=== PATIENT | male | born 1945 | race Caucasian/White ===

== ENCOUNTER 2016-09-17 02:30 | Inpatient (IN) | payer MEDICARE, BC ==
[2016-09-17] VITALS (12 sets, daily range): BP systolic 113–146; BP diastolic 53–68; PULSE 60–94; RESP 16–20; TEMP 96.9–98.9; O2SAT 92–98
[~2016-09-17] VITALS: Ht 172.7 cm; Wt 108.0 kg
[2016-09-17] MEDS ORDERED: GABA300C5 PO (03:09)
[2016-09-17] MEDS ORDERED: LISI10TA3 PO (03:09)
[2016-09-17] MEDS ORDERED: PARO20TA2 PO (03:09)
[2016-09-17] MEDS ORDERED: OMEP40CA2 PO (03:09)
[2016-09-17] MEDS ORDERED: LIPI40TA PO (03:09)
[2016-09-17] MEDS ORDERED: BYST5TAB2 PO (03:09)
[2016-09-17] MEDS ORDERED: ASPI325T PO (03:09)
[2016-09-17] MEDS ORDERED: TURM500C PO (03:09)
[2016-09-17] MEDS ORDERED: MULT1TAB84 PO (03:09)
[2016-09-17] MEDS ORDERED: [UNRECOGNIZED DRUG - CODE] PO (03:09)
[2016-09-17 04:22] LABS: BLOOD, URINE NEG (NEG); GLUCOSE,URINE NEG (NEG); KETONE, URINE 15 mg/dL (NEG); NITRITE,URINE NEG (NEG); PH, URINE 5.5 (5.0-8.5)
[2016-09-17 04:25] LABS: BASOPHIL % 0.6 % (0.0-2.0); EOSINOPHIL # 0.2 TH/MM3 (0-0.4); EOSINOPHIL % 2.8 % (0.0-4.0); HEMO FLAGS DIFF FINAL; LYMPH % 17.1 % (9.0-44.0); LYMPHOCYTE # 1.4 TH/MM3 (1.0-4.8); MEAN CELL VOLUME 91.6 FL (80.0-100.0); MEAN CORPUSCULAR HEMOGLOBIN 31.1 PG (27.0-34.0); MONO % 7.7 % (0.0-8.0); NEUT % 71.8 % (16.0-70.0); PLATELET COUNT 157 TH/MM3 (150-450); RED BLOOD COUNT 3.82 MIL/MM3 (4.50-5.90); WHITE BLOOD COUNT 8.2 TH/MM3 (4.0-11.0)
[2016-09-17 04:30] LABS: URINE COLOR YELLOW (YELLW/STRAW)
[2016-09-17] MEDS ORDERED: SODIUM CHLORIDE 0.9% FLUSH 5 ML FLUSH IVF PRN (04:30)
[2016-09-17 04:31] LABS: CHLORIDE 105 MEQ/L (98-107); COMMENT (UR) CULT NOT INDICATED; CULTURE IF INDICATED CULT NOT INDICATED; RBC, URINE 0-2 /hpf (0-3); SODIUM (NA) 140 MEQ/L (136-145); SQUAMOUS EPITHELIAL CELL URINE 0-5 /hpf (0-5); WBC, URINE 0-2 /hpf (0-5)
--- NOTE | 2016-09-17 04:33 | PD ---
HPI Chief Complaint: Abdominal Pain Time Seen by Provider: 04:30 Travel History International Travel<30 days: No Contact w/Intl Traveler<30days: No Traveled to known affect area: No History of Present Illness HPI The patient is a 71-year-old male that complains of left upper quadrant pain for 1 day. He denies any nausea or vomiting or fever. He does have a history of diverticulitis and has had a partial large bowel resection, apparently descending colon, for diverticulitis in the past. PFSH Past Medical History Depression: Yes Cardiovascular Problems: Yes High Cholesterol: Yes Diverticulitis: Yes (with reverse colostomy) Medical other: Yes (neuropathy due to back pain) Musculoskeletal: Yes (back:ddd, bulging discs, stenosis) Tetanus Vaccination: > 5 Years Influenza Vaccination: No Past Surgical History Cholecystectomy: Yes Coronary Artery Bypass Graft: Yes (2007, ) Tonsillectomy: Yes Social History Alcohol Use: Yes (daily 1 bottle of wine and beer) Tobacco Use: No Allergies-Medications (Allergen,Severity, Reaction): Coded Allergies: Codeine (Verified Allergy, Intermediate, Nausea/Vomiting, 09/17/16) Reported Meds & Prescriptions Reported Meds & Active Scripts Active Reported Turmeric (Turmeric (Curcuma Longa)) 500 Mg Cap 500 Mg PO DAILY Multivitamin Adults (Multiple Vitamins W/ Minerals) 1 Tab 1 Tab PO DAILY B-12 (Cyanocobalamin) 500 Mcg Tab 500 Mcg PO DAILY Aspirin 325 Mg Tab 325 Mg PO DAILY Bystolic (Nebivolol) 5 Mg Tab 5 Mg PO DAILY Paroxetine (Paroxetine HCl) 20 Mg Tab 20 Mg PO DAILY Omeprazole 40 Mg Cap 40 Mg PO DAILY Lipitor (Atorvastatin Calcium) 40 Mg Tab 40 Mg PO HS Lisinopril 10 Mg Tab 10 Mg PO DAILY Gabapentin 300 Mg Cap 300 Mg PO TID Review of Systems Except as stated in HPI: all other systems reviewed are Neg Physical Exam Narrative GENERAL: The patient is alert, oriented 3 in moderate apparent distress with his left upper quadrant abdominal pain. His vital signs are normal. SKIN: Warm and dry. HEAD: Atraumatic. Normocephalic. EYES: Pupils equal and round. No scleral icterus. No injection or drainage. ENT: No nasal bleeding or discharge. Mucous membranes pink and moist. NECK: Trachea midline. No JVD. CARDIOVASCULAR: Regular rate and rhythm. No murmur appreciated. RESPIRATORY: No accessory muscle use. Clear to auscultation. Breath sounds equal bilaterally. GASTROINTESTINAL: Abdomen soft, with tenderness to direct palpation of the left upper quadrant, nondistended. Hepatic and splenic margins not palpable. No guarding or rebound is present. The patient has incisional/abdominal hernias and the anterior abdomen because of his multiple surgeries. All these are easily reducible. MUSCULOSKELETAL: No obvious deformities. No clubbing. No cyanosis. No edema. NEUROLOGICAL: Awake and alert. No obvious cranial nerve deficits. Motor grossly within normal limits. Normal speech. PSYCHIATRIC: Appropriate mood and affect; insight and judgment normal. Data Data Last Documented VS Vital Signs Date Time Temp Pulse Resp B/P Pulse Ox O2 Delivery O2 Flow Rate FiO2 09/17/16 05:10 67 18 130/53 97 Room Air 09/17/16 02:35 98.9 Orders Complete Blood Count With Diff (09/17/16 04:01) Comprehensive Metabolic Panel (09/17/16 04:01) Urinalysis - C+S If Indicated (09/17/16 04:01) Iv Access Insert/Monitor (09/17/16 04:01) Lipase (09/17/16 04:01) Ct Abd/Pel W Iv Contrast(Rout) (09/17/16 04:30) Ecg Monitoring (09/17/16 04:30) Oximetry (09/17/16 04:30) Sodium Chloride 0.9% Flush (Ns Flush) (09/17/16 04:30) Iohexol 350 Inj (Omnipaque 350 Inj) (09/17/16 04:51) Admit Order (Ed Use Only) (09/17/16 05:28) Labs Laboratory Tests Test 09/17/16 04:00 White Blood Count 8.2 TH/MM3 Red Blood Count 3.82 MIL/MM3 Hemoglobin 11.9 GM/DL Hematocrit 35.0 % Mean Corpuscular Volume 91.6 FL Mean Corpuscular Hemoglobin 31.1 PG Mean Corpuscular Hemoglobin 34.0 % Concent Red Cell Distribution Width 13.0 % Platelet Count 157 TH/MM3 Mean Platelet Volume 7.8 FL Neutrophils (%) (Auto) 71.8 % Lymphocytes (%) (Auto) 17.1 % Monocytes (%) (Auto) 7.7 % Eosinophils (%) (Auto) 2.8 % Basophils (%) (Auto) 0.6 % Neutrophils # (Auto) 6.0 TH/MM3 Lymphocytes # (Auto) 1.4 TH/MM3 Monocytes # (Auto) 0.6 TH/MM3 Eosinophils # (Auto) 0.2 TH/MM3 Basophils # (Auto) 0.0 TH/MM3 CBC Comment DIFF FINAL Differential Comment Urine Color YELLOW Urine Turbidity CLEAR Urine pH 5.5 Urine Specific [place] 1.019 Urine Protein NEG mg/dL Urine Glucose (UA) NEG mg/dL Urine Ketones 15 mg/dL Urine Occult Blood NEG Urine Nitrite NEG Urine Bilirubin NEG Urine Leukocyte Esterase NEG Urine RBC 0-2 /hpf Urine WBC 0-2 /hpf Urine Squamous Epithelial 0-5 /hpf Cells Urine Bacteria NONE /hpf Microscopic Urinalysis Comment CULT NOT INDICATED Sodium Level 140 MEQ/L Potassium Level 4.0 MEQ/L Chloride Level 105 MEQ/L Carbon Dioxide Level 24.1 MEQ/L Anion Gap 11 MEQ/L Blood Urea Nitrogen 26 MG/DL Creatinine 0.91 MG/DL Estimat Glomerular Filtration 82 ML/MIN Rate Random Glucose 118 MG/DL Calcium Level 8.1 MG/DL Total Bilirubin 0.6 MG/DL Aspartate Amino Transf 16 U/L (AST/SGOT) Alanine Aminotransferase 30 U/L (ALT/SGPT) Alkaline Phosphatase 59 U/L Total Protein 6.6 GM/DL Albumin 3.1 GM/DL Lipase 177 U/L MDM Medical Decision Making Medical Screen Exam Complete: Yes Emergency Medical Condition: Yes Medical Record Reviewed: Yes Interpretation(s) The urine shows 15 ketones but is otherwise normal and culture is not indicated. The CBC is normal except for hemoglobin 11.9 and hematocrit of 35.0 and 72% neutrophils. The complete metabolic profile shows a BUN of 26, GFR of 82, glucose of 118 and calcium 8.1 and albumen 3.1 but is otherwise normal. The lipase is normal. The CT abdomen/pelvis shows severe diverticulitis of the proximal sigmoid colon and a perforated diverticulum with a trace amount of adjacent free air. There is no extensive free air and there is no edema/ nonorganized fluid in the pericolic gutter. It also shows the low midline laparotomy and hemicolectomy and there is a large ventral hernia containing large and small bowel loops but these do not appear to be contributory to the patient's pain. Differential Diagnosis Diverticulitis, pancreatitis, diverticulitis with perforation/abscess, electrolyte imbalance, renal insufficiency, anemia, colitis Narrative Course The patient has severe diverticulitis with a perforated diverticulum. No abscess formation is noted. The patient is comfortable, has a normal white count, is afebrile and looks fairly good and does not appear to need immediate surgery at this time. Plan: The patient be admitted for nothing by mouth and IV antibiotic therapy. Physician Communication Physician Communication I discussed the patient with Dr. Watson and Dr. Rhiannon Hernández. The patient will be admitted to Dr. Watson and Dr. Rhiannon Hernández will be consulting. Dr. Rhiannon Hernández requested that the patient be transferred to [facility]. Diagnosis Primary Impression: Diverticulitis of colon with perforation Admitting Information Admitting Physician Requests: Admit Papa Durán MD Sep 17, 2016 04:33
[2016-09-17 04:35] LABS: ANION GAP 11 MEQ/L (5-15); BICARBONATE 24.1 MEQ/L (21.0-32.0); BLOOD UREA NITROGEN 26 MG/DL (7-18)
[2016-09-17 04:38] LABS: ALT (GPT) 30 U/L (12-78); AST (GOT) 16 U/L (15-37); GLOMERULAR FILTRATION RATE 82 ML/MIN (>89)
[2016-09-17 04:39] LABS: TOTAL BILIRUBIN ADULT 0.6 MG/DL (0.2-1.0)
[2016-09-17 04:41] LABS: ALKALINE PHOSPHATASE 59 U/L (45-117)
[2016-09-17] MEDS ORDERED: IOHEXOL 350 MG/ML 10 ML VIAL (for RAD DIAG) IV ONE (04:51)
--- NOTE | 2016-09-17 05:23 | RADHPO ---
EXAM DATE/TIME: 09/17/2016 04:45 [facility] COMPARISON: No previous studies available for comparison. INDICATIONS : Lower left abdominal pain today. IV CONTRAST: 100 cc Omnipaque 350 (iohexol) IV ORAL CONTRAST: No oral contrast ingested. RADIATION DOSE: 21.91 CTDIvol (mGy) MEDICAL HISTORY : Diverticulitis. SURGICAL HISTORY : Cholecystectomy. ENCOUNTER: Initial ACUITY: 1 day PAIN SCALE: 5/10 LOCATION: Left lower quadrant abdomen TECHNIQUE: Volumetric scanning of the abdomen and pelvis was performed. Using automated exposure control and ad justment of the mA and/or kV according to patient size, radiation dose was kept as low as reasonably achievable to obtain optimal diagnostic quality images. FINDINGS: There is diverticulosis of the left side of the colon. Focal inflammatory changes are seen of the pro ximal sigmoid colon, series 2 image 50. A small amount of extraluminal air is seen adjacent to a dive rticulum and there is edema/non-organized fluid in the left pericolic gutter. No large amount of free air. No organized fluid. There is no bowel obstruction. Appendix is normal. Liver is mild fatty infiltrated. Spleen, pancreas, adrenal glands and kidneys are within normal limit s. The patient has a large ventral hernia at and below the umbilicus containing loops of small and large bowel. No incarceration or obstruction demonstrated. Above the umbilicus are midline and left grady lateral fat containing ventral hernias. 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 CONCLUSION: 1. Severe diverticulitis of the proximal sigmoid colon and with a perforated diverticulum with a trac e amount of adjacent free air. No extensive free air. There is edema/nonorganized fluid in the nandini lic gutter without abscess. 2. Previous low midline laparotomy with hysterectomy. There is a large ventral hernia containing smal l and large bowel loops but does not appear to be acutely contributory. 3. Fatty liver. 4. 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 Monico Diaz MD on September 17, 2016 at 5:14 Board Certified Radiologist. This report was verified electronically.
[2016-09-17] MEDS ORDERED: metroNIDAZOLE 500 MG INJ 100 ML IV ONE (05:45)
[2016-09-17] MEDS ORDERED: NALOXONE HCL 0.4 MG/ML AMP IV PRN (05:45)
[2016-09-17] MEDS ORDERED: LEVOFLOXACIN 500 MG PREMIX INJ 100 ML IV ONE (05:45)
[2016-09-17] MEDS ORDERED: SODIUM CHLORIDE 0.9% FLUSH 5 ML FLUSH FLUSH PRN (05:45)
[2016-09-17] MEDS ORDERED: ONDANSETRON HCL 4 MG/2 ML VIAL IV ONE (05:45)
[2016-09-17] MEDS ORDERED: ONDANSETRON HCL 4 MG/2 ML VIAL IVP PRN (05:45)
[2016-09-17] MEDS ORDERED: HYDROmorphone HCL PF 1 MG/ML VIAL IVP ONE (05:45)
[2016-09-17] MEDS: D5-1/2 NS + KCL 20 MEQ INJ 1,000 ML IV SCH ×2 (06:02→19:38)
[2016-09-17] MEDS: SODIUM CHLORIDE 0.9% FLUSH 5 ML FLUSH FLUSH SCH ×2 (08:33→20:32)
[2016-09-17] MEDS: PIPERACIL-TAZO 4.5 GM PREMIX 100 ML IV SCH ×3 (08:36→20:08)
[2016-09-17] MEDS ORDERED: ASPIRIN 325 MG TAB PO SCH (09:00)
[2016-09-17] MEDS: PANTOPRAZOLE SOD 40 MG DELAYED RELEASE TAB PO SCH (09:00)
[2016-09-17] MEDS ORDERED: LISINOPRIL 10 MG TAB PO SCH (09:00)
[2016-09-17] MEDS: NEBIVOLOL 5 MG TAB PO SCH (09:00)
[2016-09-17] MEDS: GABAPENTIN 300 MG CAP PO SCH ×3 (09:00→18:23)
[2016-09-17] MEDS: PARoxetine HCL 20 MG TAB PO SCH (09:00)
[2016-09-17] MEDS: MORPHINE SULFATE 4 MG/ML INJ IV PUSH PRN ×4 (13:20→22:22)
--- NOTE | 2016-09-17 16:05 | HHI.HP ---
[facility] Non-Staff Admission Diagnosis diverticulitis with perforation Diagnoses: (1) Diverticulitis of colon with perforation Travel History International Travel<30 Days: No Contact w/Intl Traveler <30 Da: No Traveled to Known Affected Are: No History of Present Illness This is a pleasant 71 year-old male with past medical history of diverticulitis status post colectomy in 2010 who presents to the ER last night complaining of a one-day history of left lower quadrant abdominal pain. The patient states that 2 days ago he ate popcorn and nuts at a movie theater. Yesterday at 11 AM he started to get some left lower quadrant abdominal pain but it subsided. Later in the day began to progress and become very severe. He denied any fever or chills. Denies any nausea or vomiting. Last bowel movement was yesterday and was small and formed. The patient states since his colectomy in 2010 he had not had any issues with diverticulitis. However he and his are very apprehensive because the colectomy in 2010 had been a planned procedure, was planned to be a laparoscopic surgery but was converted to an open and he ended up with a colostomy tube. He ultimately went to a different surgeon for the colostomy reversal that same year. The patient and his live in [place] and have been down here for several months on vacation. The patient was to be transferred to [facility] today but apparently there have not been any beds available. The patient is anxiously awaiting to speak with the colorectal surgeon Dr. Hernández. He is hungry and would like to eat. Abdominal CT in the emergency department revealed severe diverticulitis of the proximal sigmoid colon with a perforated diverticulum with a trace amount of adjacent free air, there is edema and unorganized fluid in the pericolic gutter without abscess. Review of Systems Constitutional: DENIES: Fever, Chills Ears, nose, mouth, throat: DENIES: Throat pain, Hoarseness Respiratory: DENIES: Cough, Shortness of breath Cardiovascular: DENIES: Chest pain, Palpitations Gastrointestinal: COMPLAINS OF: Abdominal pain, DENIES: Constipation, Nausea, Vomiting Genitourinary: DENIES: Urgency, Dysuria Musculoskeletal: COMPLAINS OF: Back pain (chronic low back pain) Integumentary: DENIES: Pruritus, Rash Neurologic: DENIES: Localized weakness, Paresthesias Psychiatric: COMPLAINS OF: Depression (chronic), DENIES: Anxiety Past Family Social History Past Medical History Type 2 diabetes, diet controlled Diabetic peripheral neuropathy GERD Depression Low back pain due to lumbar stenosis and herniated disc Hyperlipidemia Coronary artery disease status post triple-vessel bypass in 2007 Ventral hernia 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 according to the patient Past Surgical History Open cholecystectomy in 2009 Partial colectomy with reversal in 2010 Reported Medications Allergies Coded Allergies Type Severity Reaction Last Updated Verified Codeine Allergy Intermediate Nausea/Vomiting 09/17/16 Yes Active Scripts Medications Dose Route/Sig Days Date Category Turmeric (Turmeric (Curcuma Longa)) 500 Mg Cap 500 Mg PO DAILY 09/17/16 Reported Multivitamin Adults (Multiple Vitamins W/ Minerals) 1 Tab 1 Tab PO DAILY 09/17/16 Reported B-12 (Cyanocobalamin) 500 Mcg Tab 500 Mcg PO DAILY 09/17/16 Reported Aspirin 325 Mg Tab 325 Mg PO DAILY 09/17/16 Reported Bystolic (Nebivolol) 5 Mg Tab 5 Mg PO DAILY 09/17/16 Reported Paroxetine (Paroxetine HCl) 20 Mg Tab 20 Mg PO DAILY 09/17/16 Reported Omeprazole 40 Mg Cap 40 Mg PO DAILY 09/17/16 Reported Lipitor (Atorvastatin Calcium) 40 Mg Tab 40 Mg PO HS 09/17/16 Reported Lisinopril 10 Mg Tab 10 Mg PO DAILY 09/17/16 Reported Gabapentin 300 Mg Cap 300 Mg PO TID 09/17/16 Reported Allergies: Coded Allergies: Codeine (Verified Allergy, Intermediate, Nausea/Vomiting, 09/17/16) Family History Negative for diabetes Social History No history of tobacco use. Drinks socially. Physical Exam Vital Signs Vital Signs Date Time Temp Pulse Resp B/P Pulse Ox O2 Delivery O2 Flow Rate FiO2 09/17/16 12:34 98.5 64 20 113/56 97 Room Air 09/17/16 07:45 65 18 119/62 98 Room Air 09/17/16 07:45 98 Room Air 09/17/16 05:10 67 18 130/53 97 Room Air 09/17/16 04:05 74 16 146/62 97 Room Air 09/17/16 04:00 96 Room Air 09/17/16 02:35 98.9 77 18 140/55 98 Physical Exam GENERAL: Well-nourished, well-developed obese male patient. SKIN: Warm and dry. HEAD: Normocephalic. EYES: No scleral icterus. No injection or drainage. NECK: Supple, trachea midline. No JVD or lymphadenopathy. CARDIOVASCULAR: Regular rate and rhythm without murmurs, gallops, or rubs. RESPIRATORY: Breath sounds equal and clear to auscultation bilaterally. No accessory muscle use. GASTROINTESTINAL: Bowel sounds are active. He has midline vertical scar. He has tenderness to palpation in the left lower quadrant of the abdomen without guarding or rebound tenderness. Abdomen is soft. EXTREMITIES: Trace pedal edema. NEUROLOGICAL: Awake, alert, and oriented x 3. Non-focal. Laboratory Laboratory Tests Test 09/17/16 04:00 White Blood Count 8.2 Red Blood Count 3.82 Hemoglobin 11.9 Hematocrit 35.0 Mean Corpuscular Volume 91.6 Mean Corpuscular Hemoglobin 31.1 Mean Corpuscular Hemoglobin 34.0 Concent Red Cell Distribution Width 13.0 Platelet Count 157 Mean Platelet Volume 7.8 Neutrophils (%) (Auto) 71.8 Lymphocytes (%) (Auto) 17.1 Monocytes (%) (Auto) 7.7 Eosinophils (%) (Auto) 2.8 Basophils (%) (Auto) 0.6 Neutrophils # (Auto) 6.0 Lymphocytes # (Auto) 1.4 Monocytes # (Auto) 0.6 Eosinophils # (Auto) 0.2 Basophils # (Auto) 0.0 CBC Comment DIFF FINAL Differential Comment Urine Color YELLOW Urine Turbidity CLEAR Urine pH 5.5 Urine Specific [place] 1.019 Urine Protein NEG Urine Glucose (UA) NEG Urine Ketones 15 Urine Occult Blood NEG Urine Nitrite NEG Urine Bilirubin NEG Urine Leukocyte Esterase NEG Urine RBC 0-2 Urine WBC 0-2 Urine Squamous Epithelial 0-5 Cells Urine Bacteria NONE Microscopic Urinalysis Comment CULT NOT INDICATED Sodium Level 140 Potassium Level 4.0 Chloride Level 105 Carbon Dioxide Level 24.1 Anion Gap 11 Blood Urea Nitrogen 26 Creatinine 0.91 Estimat Glomerular Filtration 82 Rate Random Glucose 118 Calcium Level 8.1 Total Bilirubin 0.6 Aspartate Amino Transf 16 (AST/SGOT) Alanine Aminotransferase 30 (ALT/SGPT) Alkaline Phosphatase 59 Total Protein 6.6 Albumin 3.1 Lipase 177 Result Diagram: 09/17/1639909/17/16399 Imaging Last Impressions Abdomen/Pelvis CT 09/17/16429 Signed Impressions: Service Date/Time: September 04:45 - CONCLUSION: 1. Severe diverticulitis of the proximal sigmoid colon and with a perforated diverticulum with a trace amount of adjacent free air. No extensive free air. There is edema/nonorganized fluid in the pericolic gutter without abscess. 2. Previous low midline laparotomy with hysterectomy. There is a large ventral hernia containing small and large bowel loops but does not appear to be acutely contributory. 3. Fatty liver. 4. 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 Monico Diaz MD Assessment and Plan Assessment and Plan -Severe diverticulitis of the proximal sigmoid colon with perforated diverticulum and small amount of free air however no abscess, and the patient with previous history of open colectomy for diverticulitis. The patient has been admitted medically as per the colorectal surgeons request with Dr. Hernández consulting. The patient at this time appears clinically stable. He has no white blood cell count or fever and vital signs are stable. We are awaiting further input from colorectal. Continue Zosyn IV. Hopefully this will resolve with antibiotic treatment. Diet as per surgery. We'll continue IV fluids and morphine as needed for pain medicine. GERD -continue PPI Depression - continue Paxil Low back pain due to lumbar stenosis and herniated disc - continue Neurontin. Type 2 diabetes, diet controlled - glucose was normal and BMP this morning. We 'll monitor. Diabetic peripheral neuropathy - continue Neurontin. Coronary artery disease status post triple-vessel bypass in 2007 - will hold off on aspirin at this time until cleared by surgery. DVT prophylaxis with SCDs. Vita Vela MD Sep 17, 2016 16:05
[2016-09-17] MEDS ORDERED: ATORVASTATIN 40 MG TAB PO SCH (21:00)
[2016-09-18] MEDS ORDERED: LORazepam 2 MG/ML VIAL IV PUSH PRN ×4
[2016-09-18] MEDS ORDERED: LORazepam 1 MG TAB PO PRN
[2016-09-18] MEDS ORDERED: HALOPERIDOL LACTATE 5 MG/ML AMP IM PRN
[2016-09-18] MEDS ORDERED: LORazepam 2 MG TAB PO PRN
[2016-09-18] MEDS ORDERED: FLUMAZENIL 0.5 MG/5 ML VIAL IV PUSH PRN
[2016-09-18 00:08] VITALS: BP 130/61; PULSE 60; RESP 20; TEMP 96; O2SAT 94
[2016-09-18] MEDS: PIPERACIL-TAZO 4.5 GM PREMIX 100 ML IV SCH ×4 (02:57→21:49)
[2016-09-18 04:00] VITALS: BP 137/60; PULSE 59; RESP 20; TEMP 97.4; O2SAT 95
[2016-09-18 04:44] LABS: AUTOMATED NEUTROPHIL # 5.4 TH/MM3 (1.8-7.7); BASOPHIL % 0.5 % (0.0-2.0); EOSINOPHIL # 0.2 TH/MM3 (0-0.4); EOSINOPHIL % 1.8 % (0.0-4.0); HEMATOCRIT 34.1 % (39.0-51.0); HEMO FLAGS DIFF FINAL; LYMPH % 27.1 % (9.0-44.0); LYMPHOCYTE # 2.3 TH/MM3 (1.0-4.8); MEAN CELL VOLUME 93.1 FL (80.0-100.0); MEAN CORPUSCULAR HEMOGLOBIN 32.4 PG (27.0-34.0); MEAN CORPUSCULAR HGB CONC 34.8 % (32.0-36.0); MONO % 7.6 % (0.0-8.0); PLATELET COUNT 136 TH/MM3 (150-450); RED BLOOD COUNT 3.66 MIL/MM3 (4.50-5.90); RED CELL DISTRIBUTION WIDTH 13.7 % (11.6-17.2); WHITE BLOOD COUNT 8.5 TH/MM3 (4.0-11.0)
[2016-09-18 05:09] LABS: POTASSIUM 3.8 MEQ/L (3.5-5.1)
--- NOTE | 2016-09-18 07:15 | MB ---
cc: MARY ANDUJAR M.D. DATE OF CONSULTATION 09/18/2016 CHIEF COMPLAINT Diverticulitis with microperforation. HISTORY OF PRESENT ILLNESS The patient is a 71-year-old male who has a previous history of having had a diverticular resection about five years ago. At that time, he underwent a resection with a colostomy and Riaz's pouch with subsequent reanastomosis. He had been doing well until two days prior to admission when he began having some pain, which fairly rapidly progressed to severe pain. He came to the emergency department and was noted to have diverticulitis of the upper sigmoid with a micro perforation. He states he has had that pain. He has been taking prednisone and Gabapentin for his back and with this, he has had some diarrhea, which is a change from his usual mild constipation caused by pain medicine. He does have a history of polyps and his most recent colonoscopy, however, was in the fall of this last year. He has a known ventral abdominal hernia which is quite large and he has been cautioned against having this repaired. PAST MEDICAL HISTORY 1. Coronary artery disease status post bypass 2. Diabetes 3. Neuropathy 4. Chronic back pain 5. Gastroesophageal reflux disease 6. Depression PAST SURGICAL HISTORY 1. Open cholecystectomy 2. Sigmoid resection with Riaz's pouch and colostomy. 3. Resection reanastomosis of colostomy. ALLERGIES CODEINE MEDICATIONS See nurse's notes for details. PHYSICAL EXAM Physical exam reveals an alert male who appears comfortable. NEUROLOGIC: grossly intact. SKIN: Warm and dry. HEAD: Normocephalic, atraumatic. CARDIOVASCULAR: Regular rate. CHEST: Breathing is symmetric bilaterally and nonlabored. ABDOMEN: Soft, nondistended. He has a large ventral hernia which is nontender in the midline lower abdomen. He is tender to palpation IN the left lower quadrant without guarding or rebound. EXTREMITIES: Reveal trace edema. LABORATORY FINDINGS Reveals a white count of 8.5, hemoglobin 11.9, platelets of 136. Chemistry is essentially normal. Urinalysis is negative. IMPRESSION Diverticulitis with microperforation. PLAN We will treat him acutely with IV antibiotics and bowel rest, with gradual resumption of bowel function and keep a close eye on him. If I have to operate in the immediate time, he will most likely need a colostomy with Riaz's pouch again, which would be fairly problematic given his large abdominal wall hernia. If however we can give him time to resolve this acute episode, he will still need a planned resection which he can do here or at home in [place]. We will continue to follow him closely and I will see him in the office 7-10 days after discharge. I will start him on clear liquids today and we will see how that goes. Thank you very much for your kind referral. MD CARRIE Bell/ROSA /6:52 AM /7:00 AM CHUNG
[2016-09-18] MEDS: MORPHINE SULFATE 4 MG/ML INJ IV PUSH PRN ×4 (07:47→21:54)
[2016-09-18] MEDS: D5-1/2 NS + KCL 20 MEQ INJ 1,000 ML IV SCH ×2 (07:47→21:53)
[2016-09-18] MEDS: GABAPENTIN 300 MG CAP PO SCH ×3 (07:48→16:10)
[2016-09-18] MEDS: PARoxetine HCL 20 MG TAB PO SCH (07:48)
[2016-09-18] MEDS: PANTOPRAZOLE SOD 40 MG DELAYED RELEASE TAB PO SCH (07:48)
[2016-09-18] MEDS: NEBIVOLOL 5 MG TAB PO SCH (07:48)
[2016-09-18] MEDS: SODIUM CHLORIDE 0.9% FLUSH 5 ML FLUSH FLUSH SCH ×2 (07:49→21:53)
[2016-09-18 08:00] VITALS: BP 132/59; PULSE 61; RESP 17; TEMP 98.4; O2SAT 93
[2016-09-18] MEDS ORDERED: cloNIDine HCL 0.1 MG TAB PO PRN (08:45)
[2016-09-18] MEDS ORDERED: ALUMINUM/MAGNESIUM/SIMETH 30 ML CUP PO PRN (08:45)
[2016-09-18] MEDS ORDERED: ENALAPRILAT 1.25 MG/ML VIAL IV PRN (08:45)
[2016-09-18] MEDS ORDERED: DEXTROSE 50% IN WATER 50 ML VIAL(D50) IV PUSH PRN (08:45)
[2016-09-18] MEDS ORDERED: MAGNESIUM HYDROXIDE SUSP 30 ML CUP PO PRN (08:45)
[2016-09-18] MEDS ORDERED: DOCUSATE SODIUM 100 MG CAP PO PRN (08:45)
[2016-09-18] MEDS ORDERED: ACETAMINOPHEN 325 MG TAB PO PRN (08:45)
[2016-09-18] MEDS ORDERED: DOCUSATE SODIUM 50 MG/SENNA 8.6 MG TAB PO PRN (08:45)
[2016-09-18] MEDS ORDERED: CALCIUM CARBONATE 500 MG CHEWABLE TAB CHEW PRN (08:45)
[2016-09-18] MEDS ORDERED: GLUCAGON 1 MG/ML VIAL OTHER PRN (08:45)
[2016-09-18] MEDS: INSULIN ASPART SUPPLEMENTAL SCALE SQ SCH ×3 (10:57→21:00)
[2016-09-18 12:00] VITALS: BP 143/65; PULSE 63; RESP 17; TEMP 96.9; O2SAT 92
--- NOTE | 2016-09-18 14:09 | HHI.PR ---
Subjective Remarks Seen for Diverticulitis. Minimal abdominal pain. Tolerating diet. Seen with . Discussed with RN Objective Vitals Vital Signs Date Time Temp Pulse Resp B/P Pulse Ox O2 Delivery O2 Flow Rate FiO2 09/18/16 12:35 20 09/18/16 12:00 96.9 63 17 143/65 92 09/18/16 08:00 98.4 61 17 132/59 93 09/18/16 04:00 97.4 59 20 137/60 95 09/18/16 00:08 96.0 60 20 130/61 94 09/17/16 22:05 94 09/17/16 21:30 96.9 61 20 124/60 92 09/17/16 21:30 96.9 61 20 124/60 92 09/17/16 19:20 98.5 61 18 130/61 95 Room Air 09/17/16 19:20 18 09/17/16 18:29 97 Room Air 09/17/16 18:10 62 18 134/63 97 Room Air 09/17/16 15:52 60 20 116/68 I/O 09/17/16 09/17/16 09/17/16 09/18/16 09/18/16 09/18/16 07:00 15:00 23:00 07:00 15:00 23:00 Intake Total 1792 ml 604 ml 503 ml Balance 1792 ml 604 ml 503 ml Intake Oral 0 ml 0 ml IV Total 1792 ml 604 ml 503 ml # Voids 1 2 # Bowel Movements 0 0 Result Diagram: 09/18/16 0405 09/18/16 0405 Objective Remarks GENERAL: Well-nourished, well-developed obese male patient. SKIN: Warm and dry. HEAD: Normocephalic. EYES: No scleral icterus. No injection or drainage. NECK: Supple, trachea midline. No JVD or lymphadenopathy. CARDIOVASCULAR: Regular rate and rhythm without murmurs, gallops, or rubs. RESPIRATORY: Breath sounds equal and clear to auscultation bilaterally. No accessory muscle use. GASTROINTESTINAL: Bowel sounds are active. He has midline vertical scar. He has tenderness to palpation in the left lower quadrant of the abdomen without guarding or rebound tenderness. Abdomen is soft. EXTREMITIES: Trace pedal edema. NEUROLOGICAL: Awake, alert, and oriented x 3. Non-focal. A/P Problem List: (1) Diverticulitis of colon with perforation ICD Code: K57.20 Status: Acute Assessment and Plan Severe diverticulitis of the proximal sigmoid colon with perforated diverticulum and small amount of free air however no abscess, and the patient with previous history of open colectomy for diverticulitis. Stable continue IV Zosyn, bowel rest, IV hydration and pain management with IV morphine. Advance diet per colorectal surgery NCNC anemia 2/2 above. Rpt CBc in am GERD -continue PPI Depression - continue Paxil Low back pain due to lumbar stenosis and herniated disc - continue Neurontin. Type 2 diabetes, diet controlled - glucose was normal and BMP this morning. We 'll monitor with sliding scale coverage. Diabetic peripheral neuropathy - continue Neurontin. Coronary artery disease status post triple-vessel bypass in 2007 - will hold off on aspirin at this time until cleared by surgery. Alcohol abuse per patient counseled. [place] protocol. DVT prophylaxis with SCDs. Discharge Planning Not ready for dc Eugene Soto MD Sep 18, 2016 14:09
[2016-09-18 16:00] VITALS: BP 123/58; PULSE 64; RESP 17; TEMP 97.7; O2SAT 95
[2016-09-18 20:00] VITALS: BP 149/65; PULSE 65; RESP 20; TEMP 97.1; O2SAT 93
[2016-09-19] VITALS: BP 132/59; PULSE 64; RESP 20; TEMP 96; O2SAT 92
[2016-09-19] MEDS: PIPERACIL-TAZO 4.5 GM PREMIX 100 ML IV SCH ×4 (02:00→20:15)
[2016-09-19 04:00] VITALS: BP 139/65; PULSE 65; RESP 20; TEMP 97.3; O2SAT 95
[2016-09-19 05:20] LABS: AUTOMATED NEUTROPHIL # 3.4 TH/MM3 (1.8-7.7); BASOPHIL # 0.1 TH/MM3 (0-0.2); BASOPHIL % 1.1 % (0.0-2.0); EOSINOPHIL # 0.2 TH/MM3 (0-0.4); EOSINOPHIL % 4.1 % (0.0-4.0); HEMATOCRIT 31.9 % (39.0-51.0); HEMO FLAGS DIFF FINAL; LYMPH % 30.1 % (9.0-44.0); LYMPHOCYTE # 1.8 TH/MM3 (1.0-4.8); MEAN CELL VOLUME 93.2 FL (80.0-100.0); MEAN CORPUSCULAR HEMOGLOBIN 31.5 PG (27.0-34.0); MEAN CORPUSCULAR HGB CONC 33.8 % (32.0-36.0); MONO % 7.4 % (0.0-8.0); NEUT % 57.3 % (16.0-70.0); PLATELET COUNT 135 TH/MM3 (150-450); RED BLOOD COUNT 3.42 MIL/MM3 (4.50-5.90); RED CELL DISTRIBUTION WIDTH 13.8 % (11.6-17.2)
[2016-09-19 05:46] LABS: BICARBONATE 29.5 MEQ/L (21.0-32.0); MAGNESIUM 1.6 MG/DL (1.5-2.5); POTASSIUM 3.3 MEQ/L (3.5-5.1)
[2016-09-19] MEDS: INSULIN ASPART SUPPLEMENTAL SCALE SQ SCH ×4 (06:16→21:00)
[2016-09-19] MEDS: PANTOPRAZOLE SOD 40 MG DELAYED RELEASE TAB PO SCH (07:56)
[2016-09-19] MEDS: NEBIVOLOL 5 MG TAB PO SCH (07:56)
[2016-09-19] MEDS: PARoxetine HCL 20 MG TAB PO SCH (07:56)
[2016-09-19] MEDS: GABAPENTIN 300 MG CAP PO SCH ×3 (07:56→16:38)
[2016-09-19] MEDS: SODIUM CHLORIDE 0.9% FLUSH 5 ML FLUSH FLUSH SCH ×2 (07:59→20:15)
[2016-09-19 08:00] VITALS: BP_SYST 110; BP_SYST 170; BP_DIAS 55; BP_DIAS 70; BP_DIAS 72; PULSE 56; RESP 17; TEMP 97.9; O2SAT 94
[2016-09-19] MEDS: MORPHINE SULFATE 4 MG/ML INJ IV PUSH PRN ×2 (08:02→11:14)
[2016-09-19] MEDS ORDERED: POTASSIUM CHLORIDE 20 MEQ CONTROLLED RELEASE TAB PO ONE (08:30)
[2016-09-19] MEDS: LISINOPRIL 10 MG TAB PO SCH (09:11)
--- NOTE | 2016-09-19 09:48 | HHI.PR ---
Subjective Remarks No N or V. Pain controlled. Not using pain meds. Objective Vital Signs Date Time Temp Pulse Resp B/P Pulse Ox O2 Delivery O2 Flow Rate FiO2 09/19/16 08:00 97.9 56 17 170/72 94 170/70 09/19/16 04:00 97.3 65 20 139/65 95 09/19/16 00:00 96.0 64 20 132/59 92 09/18/16 20:00 97.1 65 20 149/65 93 09/18/16 16:26 20 09/18/16 16:00 97.7 64 17 123/58 95 09/18/16 12:00 96.9 63 17 143/65 92 I/O 09/18/16 09/18/16 09/18/16 09/19/16 09/19/16 09/19/16 07:00 15:00 23:00 07:00 15:00 23:00 Intake Total 604 ml 703 ml 1040 ml 240 ml 1184 ml Balance 604 ml 703 ml 1040 ml 240 ml 1184 ml Intake Oral 0 ml 200 ml 240 ml 240 ml IV Total 604 ml 503 ml 800 ml 1184 ml # Voids 2 2 3 # Bowel Movements 0 1 1 Result Diagram: 09/19/16 0338 09/19/16 0338 Objective Remarks VS-S Abd: mildly tender LLQ. Large ventral hernia. Assessment and Plan Assessment and Plan Diverticulitis Full liquid diet Start Cipro tonight. D/C on 7-10 days D/C tele D/C Piperacillin after today's doses D/C in AM. F/U with Dr Hernández in 7-10 days. May be able to treat conservatively given all other comorbidities. Monico Wilkerson MD Sep 19, 2016 09:48
[2016-09-19] MEDS: D5-1/2 NS + KCL 20 MEQ INJ 1,000 ML IV SCH (11:12)
[2016-09-19 12:00] VITALS: BP 134/61; PULSE 66; RESP 19; TEMP 97.7; O2SAT 95
--- NOTE | 2016-09-19 13:25 | HHI.PR ---
Subjective Remarks Follow-up diverticulitis. Improving pain tolerating by mouth. States he can tolerate tramadol Wants to go home. Discussed with RN Objective Vitals Vital Signs Date Time Temp Pulse Resp B/P Pulse Ox O2 Delivery O2 Flow Rate FiO2 09/19/16 12:00 97.7 66 19 134/61 95 09/19/16 08:00 97.9 56 17 170/72 94 170/70 09/19/16 04:00 97.3 65 20 139/65 95 09/19/16 00:00 96.0 64 20 132/59 92 09/18/16 20:00 97.1 65 20 149/65 93 09/18/16 16:26 20 09/18/16 16:00 97.7 64 17 123/58 95 I/O 09/18/16 09/18/16 09/18/16 09/19/16 09/19/16 09/19/16 07:00 15:00 23:00 07:00 15:00 23:00 Intake Total 604 ml 703 ml 1040 ml 240 ml 1184 ml Balance 604 ml 703 ml 1040 ml 240 ml 1184 ml Intake Oral 0 ml 200 ml 240 ml 240 ml IV Total 604 ml 503 ml 800 ml 1184 ml # Voids 2 2 3 # Bowel Movements 0 1 1 Result Diagram: 09/19/168 09/19/16337 Objective Remarks GENERAL: Well-nourished, well-developed obese male patient. SKIN: Warm and dry. HEAD: Normocephalic. EYES: No scleral icterus. No injection or drainage. NECK: Supple, trachea midline. No JVD or lymphadenopathy. CARDIOVASCULAR: Regular rate and rhythm without murmurs, gallops, or rubs. RESPIRATORY: Breath sounds equal and clear to auscultation bilaterally. No accessory muscle use. GASTROINTESTINAL: Bowel sounds are active. He has midline vertical scar. He has improving tenderness to palpation in the left lower quadrant of the abdomen without guarding or rebound tenderness. Abdomen is soft. EXTREMITIES: Trace pedal edema. NEUROLOGICAL: Awake, alert, and oriented x 3. Non-focal. A/P Problem List: (1) Diverticulitis of colon with perforation ICD Code: K57.20 Status: Acute Assessment and Plan Severe diverticulitis of the proximal sigmoid colon with perforated diverticulum and small amount of free air however no abscess, and the patient with previous history of open colectomy for diverticulitis. Improving continue IV Zosyn switch to by mouth Cipro tonight, advance diet as tolerated per CRS, IV hydration and pain management with tramadol and IV morphine. Consult regarding tramadol and narcotics NCNC anemia 2/2 above. No gross bleeding. Monitor GERD -continue PPI Depression - continue Paxil Low back pain due to lumbar stenosis and herniated disc - continue Neurontin. Type 2 diabetes, diet controlled -stable. We'll monitor with sliding scale coverage. Diabetic peripheral neuropathy - continue Neurontin. Coronary artery disease status post triple-vessel bypass in 2007 - will hold off on aspirin at this time until cleared by surgery. Alcohol abuse per patient counseled. [place] protocol. Hypertension. Restart lisinopril. DVT prophylaxis with SCDs. Discharge Planning Possible discharge in the morning Eugene Soto MD Sep 19, 2016 13:25
[2016-09-19] MEDS ORDERED: traMADol HCL 50 MG TAB PO PRN (13:30)
[2016-09-19] MEDS ORDERED: ULTR50TA5 PO (13:31)
[2016-09-19] MEDS ORDERED: CIPR-9 PO (13:31)
--- NOTE | 2016-09-19 13:31 | HHI.DCPOC ---
Discharge Care Plan Diagnosis: (1) Diverticulitis of colon with perforation Your Health Problems Are: Difficulty with ADL Exercise Tolerance Goals to Promote Your Health * To prevent worsening of your condition and complications * To maintain your health at the optimal level Directions to Meet Your Goals Take your medications as prescribed Follow your dietary instruction Follow activity as directed Keep your appointments as scheduled Take your immunizations and boosters as scheduled If your symptoms worsen call your PCP, if no PCP go to Urgent Care Center or Emergency Room Smoking is Dangerous to Your Health. Avoid second hand smoke Call the 24-hour hour crisis hotline for domestic abuse at Eugene Soto MD Sep 19, 2016 13:31
[2016-09-19 16:00] VITALS: BP 144/70; PULSE 60; RESP 18; TEMP 97.5; O2SAT 96
[2016-09-19] MEDS: traMADol HCL 50 MG TAB PO PRN (18:37)
[2016-09-19 20:00] VITALS: BP 122/58; PULSE 59; RESP 20; TEMP 98.7; O2SAT 95
[2016-09-19] MEDS: CIPROFLOXACIN 500 MG TAB PO SCH (20:15)
[2016-09-20] VITALS: BP 141/66; PULSE 59; RESP 18; TEMP 96.5; O2SAT 95
[2016-09-20] MEDS: D5-1/2 NS + KCL 20 MEQ INJ 1,000 ML IV SCH (00:09)
[2016-09-20] MEDS: traMADol HCL 50 MG TAB PO PRN (03:13)
[2016-09-20] MEDS: INSULIN ASPART SUPPLEMENTAL SCALE SQ SCH (05:49)
[2016-09-20] MEDS: LISINOPRIL 10 MG TAB PO SCH (07:58)
[2016-09-20] MEDS: PANTOPRAZOLE SOD 40 MG DELAYED RELEASE TAB PO SCH (07:58)
[2016-09-20] MEDS: NEBIVOLOL 5 MG TAB PO SCH (07:58)
[2016-09-20] MEDS: GABAPENTIN 300 MG CAP PO SCH (07:58)
[2016-09-20] MEDS: CIPROFLOXACIN 500 MG TAB PO SCH (07:58)
[2016-09-20] MEDS: PARoxetine HCL 20 MG TAB PO SCH (07:58)
[2016-09-20 08:00] VITALS: BP 143/58; PULSE 58; RESP 16; TEMP 98.6; O2SAT 96
[2016-09-20] MEDS: SODIUM CHLORIDE 0.9% FLUSH 5 ML FLUSH FLUSH SCH (08:02)
--- NOTE | 2016-09-20 09:07 | HHI.PR ---
Subjective . D/C today on Cipro and low residue diet. F/U Dr Hernández 7-10 days Monico Wilkerson MD Sep 20, 2016 09:07
--- NOTE | 2016-09-20 09:31 | HHI.PR ---
Subjective Remarks F/u diverticulitis. Rosenda valle wants to go home dw RN. Cleared for dc by CRS Objective Vitals Vital Signs Date Time Temp Pulse Resp B/P Pulse Ox O2 Delivery O2 Flow Rate FiO2 09/20/16 08:00 98.6 58 16 143/58 96 09/20/16 00:00 96.5 59 18 141/66 95 09/19/16 20:00 98.7 59 20 122/58 95 09/19/16 19:37 16 09/19/16 16:00 97.5 60 18 144/70 96 09/19/16 12:00 97.7 66 19 134/61 95 I/O 09/19/16 09/19/16 09/19/16 09/20/16 09/20/16 09/20/16 07:00 15:00 23:00 07:00 15:00 23:00 Intake Total 240 ml 1424 ml 360 ml 1325 ml Output Total 300 ml Balance 240 ml 1424 ml 360 ml 1025 ml Intake Oral 240 ml 240 ml 360 ml 120 ml IV Total 1184 ml 1205 ml Output Urine Total 300 ml # Voids 3 3 1 # Bowel Movements 1 0 0 0 Result Diagram: 09/19/16 0338 09/19/16 0338 Imaging Last Impressions Abdomen/Pelvis CT 09/17/16 0430 Signed Impressions: Service Date/Time: September 04:45 - CONCLUSION: 1. Severe diverticulitis of the proximal sigmoid colon and with a perforated diverticulum with a trace amount of adjacent free air. No extensive free air. There is edema/nonorganized fluid in the pericolic gutter without abscess. 2. Previous low midline laparotomy with hysterectomy. There is a large ventral hernia containing small and large bowel loops but does not appear to be acutely contributory. 3. Fatty liver. 4. 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 Monico Diaz MD Objective Remarks GENERAL: Well-nourished, well-developed obese male patient. SKIN: Warm and dry. HEAD: Normocephalic. EYES: No scleral icterus. No injection or drainage. NECK: Supple, trachea midline. No JVD or lymphadenopathy. CARDIOVASCULAR: Regular rate and rhythm without murmurs, gallops, or rubs. RESPIRATORY: Breath sounds equal and clear to auscultation bilaterally. No accessory muscle use. GASTROINTESTINAL: Bowel sounds are active. He has midline vertical scar. He has improving tenderness to palpation in the left lower quadrant of the abdomen without guarding or rebound tenderness. Abdomen is soft. EXTREMITIES: Trace pedal edema. NEUROLOGICAL: Awake, alert, and oriented x 3. Non-focal. A/P Problem List: (1) Diverticulitis of colon with perforation ICD Code: K57.20 Status: Acute Assessment and Plan Severe diverticulitis of the proximal sigmoid colon with perforated diverticulum and small amount of free air however no abscess, and the patient with previous history of open colectomy for diverticulitis. Improving continue po Cipro s/p Zosyn advance diet as tolerated per CRS and pain management with tramadol and IV morphine. Counselled regarding tramadol and narcotics. Dc IVF stable for dc NCNC anemia 2/2 above. No gross bleeding. Monitor GERD -continue PPI Depression - continue Paxil Low back pain due to lumbar stenosis and herniated disc - continue Neurontin. Type 2 diabetes, diet controlled -stable. We'll monitor with sliding scale coverage. Diabetic peripheral neuropathy - continue Neurontin. Coronary artery disease status post triple-vessel bypass in 2007 - restart aspirin Alcohol abuse , counseled. [facility] protocol. Hypertension. Restart lisinopril. DVT prophylaxis with SCDs. Discharge Planning dc Eugene Soto MD Sep 20, 2016 09:31
[2016-09-20] MEDS ORDERED: SENN1TAB PO (09:32)
--- NOTE | 2016-09-20 09:33 | HHI.DS ---
Discharge Summary Admission Date Sep 17, 2016 at 05:30 Discharge Date: Sep 20, 2016 Admitting Diagnosis diverticulitis with perforation (1) Diverticulitis of colon with perforation ICD Code: K57.20 Diagnosis: Principal Procedures none Brief History - From Admission This is a pleasant 71 year-old male with past medical history of diverticulitis status post colectomy in 2010 who presents to the ER last night complaining of a one-day history of left lower quadrant abdominal pain. The patient states that 2 days ago he ate popcorn and nuts at a movie theater. Yesterday at 11 AM he started to get some left lower quadrant abdominal pain but it subsided. Later in the day began to progress and become very severe. He denied any fever or chills. Denies any nausea or vomiting. Last bowel movement was yesterday and was small and formed. The patient states since his colectomy in 2010 he had not had any issues with diverticulitis. However he and his are very apprehensive because the colectomy in 2010 had been a planned procedure, was planned to be a laparoscopic surgery but was converted to an open and he ended up with a colostomy tube. He ultimately went to a different surgeon for the colostomy reversal that same year. The patient and his live in [place] and have been down here for several months on vacation. The patient was to be transferred to [facility] today but apparently there have not been any beds available. The patient is anxiously awaiting to speak with the colorectal surgeon Dr. Hernández. He is hungry and would like to eat. Abdominal CT in the emergency department revealed severe diverticulitis of the proximal sigmoid colon with a perforated diverticulum with a trace amount of adjacent free air, there is edema and unorganized fluid in the pericolic gutter without abscess. CBC/BMP: 09/19/16 0338 09/19/16 0338 Significant Findings Laboratory Tests Test 09/18/16 09/19/16 04:05 03:38 Red Blood Count 3.66 MIL/MM3 3.42 MIL/MM3 (4.50-5.90) (4.50-5.90) Hemoglobin 11.9 GM/DL 10.8 GM/DL (13.0-17.0) (13.0-17.0) Hematocrit 34.1 % 31.9 % (39.0-51.0) (39.0-51.0) Platelet Count 136 TH/MM3 135 TH/MM3 (150-450) (150-450) Estimat Glomerular Filtration 87 ML/MIN (>89) 88 ML/MIN (>89) Rate Random Glucose 111 MG/DL (74-106) Eosinophils (%) (Auto) 4.1 % (0.0-4.0) Potassium Level 3.3 MEQ/L (3.5-5.1) Imaging Last Impressions Abdomen/Pelvis CT 09/17/16 0430 Signed Impressions: Service Date/Time: September 04:45 - CONCLUSION: 1. Severe diverticulitis of the proximal sigmoid colon and with a perforated diverticulum with a trace amount of adjacent free air. No extensive free air. There is edema/nonorganized fluid in the pericolic gutter without abscess. 2. Previous low midline laparotomy with hysterectomy. There is a large ventral hernia containing small and large bowel loops but does not appear to be acutely contributory. 3. Fatty liver. 4. 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 Monico Diaz MD PE at Discharge GENERAL: Well-nourished, well-developed obese male patient. SKIN: Warm and dry. HEAD: Normocephalic. EYES: No scleral icterus. No injection or drainage. NECK: Supple, trachea midline. No JVD or lymphadenopathy. CARDIOVASCULAR: Regular rate and rhythm without murmurs, gallops, or rubs. RESPIRATORY: Breath sounds equal and clear to auscultation bilaterally. No accessory muscle use. GASTROINTESTINAL: Bowel sounds are active. He has midline vertical scar. He has improving tenderness to palpation in the left lower quadrant of the abdomen without guarding or rebound tenderness. Abdomen is soft. EXTREMITIES: Trace pedal edema. NEUROLOGICAL: Awake, alert, and oriented x 3. Non-focal. Hospital Course Severe diverticulitis of the proximal sigmoid colon with perforated diverticulum and small amount of free air however no abscess, and the patient with previous history of open colectomy for diverticulitis. Improving continue po Cipro s/p Zosyn advance diet as tolerated per CRS and pain management with tramadol and IV morphine. Counselled regarding tramadol and narcotics. Dc IVF stable for dc NCNC anemia 2/2 above. No gross bleeding. Monitor GERD -continue PPI Depression - continue Paxil Low back pain due to lumbar stenosis and herniated disc - continue Neurontin. Type 2 diabetes, diet controlled -stable. We'll monitor with sliding scale coverage. Diabetic peripheral neuropathy - continue Neurontin. Coronary artery disease status post triple-vessel bypass in 2007 - restart aspirin Alcohol abuse , counseled. [facility] protocol. Hypertension. Restart lisinopril. DVT prophylaxis with SCDs. Pt Condition on Discharge: Stable Discharge Disposition: Discharge Home Discharge Time: <= 30 minutes Discharge Instructions DIET: Follow Instructions for: Diabetic Diet, Full Liquid Diet Activities you can perform: Regular-No Restrictions Activities to Avoid: Driving Follow up Referrals: Colorectal Surgery - 1 Week PCP Follow-up - 1 Week New Medications: Ciprofloxacin (Cipro) 500 Mg Tab 500 MG PO Q12HR Infection #24 TAB Sennosides-Docusate Sodium (Senna Plus 8.6-50 mg) 1 Tab Tab 1 TAB PO BID Prevent Constipation #60 TAB Tramadol (Ultram) 50 Mg Tab 100 MG PO Q6H PRN pain 6-10 #28 TAB Continued Medications: Aspirin (Aspirin) 325 Mg Tab 325 MG PO DAILY #30 Ref 0 TAB Atorvastatin (Lipitor) 40 Mg Tab 40 MG PO HS Cholesterol Management #30 Ref 0 TAB Cyanocobalamin (B-12) 500 Mcg Tab 500 MCG PO DAILY Nutritional Supplement #1 Ref 0 BOTTLE Gabapentin (Gabapentin) 300 Mg Cap 300 MG PO TID #90 Ref 0 CAP Lisinopril (Lisinopril) 10 Mg Tab 10 MG PO DAILY #30 Ref 0 TAB Multiple Vitamins W/ Minerals (Multivitamin Adults) 1 Tab 1 TAB PO DAILY Nutritional Supplement Ref 0 TAB Nebivolol (Bystolic) 5 Mg Tab 5 MG PO DAILY Blood Pressure Management #30 Ref 0 TAB Omeprazole (Omeprazole) 40 Mg Cap 40 MG PO DAILY #30 Ref 0 CAP Paroxetine (Paroxetine) 20 Mg Tab 20 MG PO DAILY #30 Ref 0 TAB Turmeric (Curcuma Longa) (Turmeric) 500 Mg Cap 500 MG PO DAILY Nutritional Supplement Ref 0 CAP Eugene Soto MD Sep 20, 2016 09:33
== END 2016-09-20 10:35 | disposition home or self-care (01) | DRG 392 ==
LOC: PHED 02:30 → PHEDA 05:30 → PHEDH 09:22 → N07A 21:04
PROVIDERS: ADMIT Internal Medicine; ATTEND Internal Medicine
DX: K57.20 Diverticulitis of large intestine with perforation and abscess without bleeding (principal); E11.42 Type 2 diabetes mellitus with diabetic polyneuropathy; D64.9 Anemia, unspecified; Z90.49 Acquired absence of other specified parts of digestive tract; K21.9 Gastro-esophageal reflux disease without esophagitis; F32.9 Major depressive disorder, single episode, unspecified; M48.06 Spinal stenosis, lumbar region; E78.5 Hyperlipidemia, unspecified; I25.10 Atherosclerotic heart disease of native coronary artery without angina pectoris; Z95.1 Presence of aortocoronary bypass graft; E66.9 Obesity, unspecified; Z68.36 Body mass index [BMI] 36.0-36.9, adult; K43.9 Ventral hernia without obstruction or gangrene; I10 Essential (primary) hypertension; F10.10 Alcohol abuse, uncomplicated
CPT/HCPCS: 74177; 80048; 80053; 81001; 82948; 83690; 83735; 85025; J1170; J1815; J1956; J2270; J2405; J2543; J3480; Q9967